=== PATIENT | male | born 1990 | race Caucasian/White ===

== ENCOUNTER 2023-07-22 19:05 | Emergency (ER) | payer SELFPAY ==
[2023-07-22 19:30] LABS: BASOPHILS ABSOLUTE AUTO 0.11 K/uL (0.00-0.20); EOSINOPHILS PERCENT AUTO 1.8 % (0.0-6.0); HEMATOCRIT 41.2 % (42.0-52.0); HEMOGLOBIN 14.5 g/dL (14.0-18.0); IMMATURE GRAN ABSOLUTE AUTO 0.04 K/uL (0.00-0.05); IMMATURE GRAN PERCENT AUTO 0.4 % (0.0-0.4); MEAN CORPUSCULAR HEMOGLOBIN 30.7 pg (28.0-32.0); MEAN CORPUSCULAR HGB CONC 35.2 g/dL (32.0-36.0); MEAN CORPUSCULAR VOLUME 87.1 fL (83.0-99.0); MEAN PLATELET VOLUME 10.5 fL (9.4-12.4); MONOCYTES ABSOLUTE AUTO 0.66 K/uL (0.00-0.80); NEUTROPHILS ABSOLUTE AUTO 7.93 K/uL (1.80-7.70); NEUTROPHILS PERCENT AUTO 71.8 % (41.0-71.0); PLATELET COUNT,PLT 248 K/uL (150-400); RED BLOOD CELL COUNT 4.73 M/uL (4.52-5.90); WHITE BLOOD CELL COUNT,WBC 11.04 K/uL (3.9-11.3)
[2023-07-22] MEDS: Sodium Chloride 0.9% 1,000 ML IV STA (19:35)
[2023-07-22] MEDS: Tamsulosin 0.4 MG Cap.ER PO ONE (19:35)
[2023-07-22] MEDS: Ketorolac 30 MG/ML SDV IVPUSH ONE (19:37)
[2023-07-22] MEDS: Sodium Chloride 0.9% 10 ML Syringe FLUSH PRN (19:39)
[2023-07-22] MEDS: Sodium Chloride 0.9% 2.5 ML Syringe FLUSH PRN (19:39)
[2023-07-22 19:57] LABS: A/G RATIO 0.9 (0.9-1.6); ALBUMIN 3.6 g/dL (3.4-5.0); BILIRUBIN TOTAL 0.3 mg/dL (0.2-1.0); CALCIUM 8.9 mg/dL (8.5-10.1); CARBON DIOXIDE,CO2 24.7 mmol/L (21.0-32.0); CREATININE 1.2 mg/dL (0.8-1.3); EST CRCL DRUG DOSING (CG) 91.56 mL/min; POTASSIUM,K 3.8 mmol/L (3.5-5.1); PROTEIN TOTAL,TP 7.6 g/dL (6.4-8.2)
[2023-07-22 20:05] LABS: LACTIC ACID 0.7 mmol/L (0.4-2.0)
[2023-07-22] MEDS: Iopamidol 755 MG/ML 500 ML Multipack Bottle IVPUSH ONE (20:30)
[2023-07-22 20:31] LABS: BILIRUBIN,URINE NEGATIVE (NEGATIVE); COLOR,URINE YELLOW; GLUCOSE,URINE NEGATIVE (NEGATIVE); KETONES,URINE NEGATIVE (NEGATIVE); LEUKOCYTE ESTERASE,URINE NEGATIVE (NEGATIVE); NITRITE,URINE NEGATIVE (NEGATIVE); OCCULT BLOOD,URINE SMALL (NEGATIVE); PH,URINE 6.5 (5.0-8.0); PROTEIN,URINE TRACE mg/dL (NEGATIVE); UROBILINOGEN,URINE 0.2 EU/dL (<2.0)
[2023-07-22 20:46] LABS: APPEARANCE,URINE HAZY
[2023-07-22 20:47] LABS: BACTERIA,URINE 1+ (NEGATIVE); EPITHELIAL CELLS,URINE RARE (NONE-FEW); RBC,URINE 20-30 (0-2/HPF)
== END 2023-07-22 21:34 | disposition home or self-care (01) ==
LOC: MW.ED 19:05
DX: R10.9 Unspecified abdominal pain (principal); Z79.899 Other long term (current) drug therapy; Z88.0 Allergy status to penicillin
CPT/HCPCS: 36415; 74177; 80053; 81001; 83605; 83690; 85025; 96374; 99284; A9270; J1885; J3490; J7030; Q9967

== ENCOUNTER 2023-08-25 19:20 | Emergency (ER) | payer MEDICAID ==
[2023-08-25] MEDS: Sodium Chloride 0.9% 2.5 ML Syringe FLUSH PRN (19:30)
[2023-08-25] MEDS: Sodium Chloride 0.9% 10 ML Syringe FLUSH PRN (19:30)
[2023-08-25] MEDS: Sodium Chloride 0.9% 1,000 ML IV ONE ×2 (19:30→20:45)
[2023-08-25 19:53] LABS: BASOPHILS PERCENT AUTO 0.9 % (0.0-1.0); EOSINOPHILS ABSOLUTE AUTO 0.07 K/uL (0.00-0.45); EOSINOPHILS PERCENT AUTO 0.6 % (0.0-6.0); HEMATOCRIT 41.4 % (42.0-52.0); HEMOGLOBIN 14.8 g/dL (14.0-18.0); IMMATURE GRAN ABSOLUTE AUTO 0.04 K/uL (0.00-0.05); IMMATURE GRAN PERCENT AUTO 0.4 % (0.0-0.4); LYMPHOCYTES ABSOLUTE AUTO 1.76 K/uL (1.00-4.80); LYMPHOCYTES PERCENT AUTO 16.1 % (24.0-44.0); MEAN CORPUSCULAR HEMOGLOBIN 30.6 pg (28.0-32.0); MEAN CORPUSCULAR HGB CONC 35.7 g/dL (32.0-36.0); MEAN CORPUSCULAR VOLUME 85.7 fL (83.0-99.0); MEAN PLATELET VOLUME 10.5 fL (9.4-12.4); MONOCYTES ABSOLUTE AUTO 0.75 K/uL (0.00-0.80); MONOCYTES PERCENT AUTO 6.8 % (0.0-8.0); NEUTROPHILS ABSOLUTE AUTO 8.23 K/uL (1.80-7.70); NEUTROPHILS PERCENT AUTO 75.2 % (41.0-71.0); PLATELET COUNT,PLT 253 K/uL (150-400); RED BLOOD CELL COUNT 4.83 M/uL (4.52-5.90); WHITE BLOOD CELL COUNT,WBC 10.95 K/uL (3.9-11.3)
[2023-08-25 20:18] LABS: LACTIC ACID 1.5 mmol/L (0.4-2.0)
[2023-08-25 20:20] LABS: A/G RATIO 0.9 (0.9-1.6); ALANINE AMINOTRANSFERASE,ALT 20 IU/L (14-63); ALBUMIN 3.4 g/dL (3.4-5.0); ALKALINE PHOSPHATASE 91 U/L (46-116); ASPARTATE AMNIOTRANSFERASE,AST 22 IU/L (15-37); BILIRUBIN TOTAL 0.6 mg/dL (0.2-1.0); BLOOD UREA NITROGEN,BUN 15 mg/dL (7.0-18.0); CALCIUM 9.5 mg/dL (8.5-10.1); CARBON DIOXIDE,CO2 26.5 mmol/L (21.0-32.0); CHLORIDE,CL 102 mmol/L (98-107); CREATININE 1.3 mg/dL (0.8-1.3); GLUCOSE RANDOM 96 mg/dL (74-106); LIPASE 25 U/L (16-77); POTASSIUM,K 3.7 mmol/L (3.5-5.1); PROTEIN TOTAL,TP 7.4 g/dL (6.4-8.2); SODIUM,NA 140 mmol/L (136-148)
[2023-08-25 20:21] LABS: ESTIMATED GFR 75 mL/min (>60)
[2023-08-25] MEDS: Iopamidol 755 MG/ML 500 ML Multipack Bottle IVPUSH ONE (21:03)
[2023-08-25] MEDS: Ketorolac 30 MG/ML SDV IVPUSH ONE (21:24)
[2023-08-25 22:03] LABS: APPEARANCE,URINE CLEAR; BILIRUBIN,URINE NEGATIVE (NEGATIVE); COLOR,URINE YELLOW; GLUCOSE,URINE NEGATIVE (NEGATIVE); KETONES,URINE NEGATIVE (NEGATIVE); LEUKOCYTE ESTERASE,URINE NEGATIVE (NEGATIVE); NITRITE,URINE NEGATIVE (NEGATIVE); OCCULT BLOOD,URINE MODERATE (NEGATIVE); PROTEIN,URINE NEGATIVE (NEGATIVE); UROBILINOGEN,URINE 0.2 EU/dL (<2.0)
[2023-08-25 22:14] LABS: BACTERIA,URINE RARE (NEGATIVE); EPITHELIAL CELLS,URINE RARE (NONE-FEW)
[2023-08-25] MEDS: cefTRIAXone 1 GM in Sodium Chloride 0.9% 50 ML IV ONE (23:00)
== END 2023-08-25 23:29 ==
LOC: MW.ED 19:20
DX: N45.1 Epididymitis (principal); Z88.0 Allergy status to penicillin; Z79.899 Other long term (current) drug therapy; Z75.8 Other problems related to medical facilities and other health care
CPT/HCPCS: 36415; 74177; 76870; 80053; 81001; 83605; 83690; 84484; 85025; 87040; 93005; 93976; 96361; 96365; 96375; 99285; J0696; J1885; J3490; J7030; Q9967; 93010; 99284

== ENCOUNTER 2023-08-26 10:01 | Emergency (ER) | payer MEDICAID ==
[2023-08-26] MEDS: Acetaminophen 500 MG Tab PO ONE (10:16)
[2023-08-26] MEDS: Doxycycline 100 MG Cap PO ONE (10:17)
[2023-08-26] MEDS: Ketorolac 30 MG/ML SDV IM STA (10:18)
== END 2023-08-26 11:04 | disposition left against medical advice (07) ==
LOC: MW.ED 10:01
DX: N45.1 Epididymitis (principal); Z88.0 Allergy status to penicillin; Z75.8 Other problems related to medical facilities and other health care
CPT/HCPCS: 96372; 99284; A9270; J1885; 99283

== ENCOUNTER 2023-08-28 23:32 | Emergency (ER) | payer MEDICAID ==
[2023-08-28 23:45] LABS: BASOPHILS ABSOLUTE AUTO 0.08 K/uL (0.00-0.20); BASOPHILS PERCENT AUTO 0.8 % (0.0-1.0); EOSINOPHILS ABSOLUTE AUTO 0.07 K/uL (0.00-0.45); EOSINOPHILS PERCENT AUTO 0.7 % (0.0-6.0); HEMATOCRIT 42.8 % (42.0-52.0); HEMOGLOBIN 15.1 g/dL (14.0-18.0); IMMATURE GRAN ABSOLUTE AUTO 0.04 K/uL (0.00-0.05); IMMATURE GRAN PERCENT AUTO 0.4 % (0.0-0.4); LYMPHOCYTES ABSOLUTE AUTO 1.62 K/uL (1.00-4.80); LYMPHOCYTES PERCENT AUTO 15.7 % (24.0-44.0); MEAN CORPUSCULAR HEMOGLOBIN 31.1 pg (28.0-32.0); MEAN CORPUSCULAR HGB CONC 35.3 g/dL (32.0-36.0); MEAN CORPUSCULAR VOLUME 88.1 fL (83.0-99.0); MEAN PLATELET VOLUME 10.7 fL (9.4-12.4); MONOCYTES ABSOLUTE AUTO 0.81 K/uL (0.00-0.80); MONOCYTES PERCENT AUTO 7.8 % (0.0-8.0); NEUTROPHILS ABSOLUTE AUTO 7.72 K/uL (1.80-7.70); NEUTROPHILS PERCENT AUTO 74.6 % (41.0-71.0); PLATELET COUNT,PLT 220 K/uL (150-400); RED BLOOD CELL COUNT 4.86 M/uL (4.52-5.90); WHITE BLOOD CELL COUNT,WBC 10.34 K/uL (3.9-11.3)
[2023-08-28] MEDS: Ondansetron 4 MG/2 ML SDV IVPUSH ONE (23:48)
[2023-08-28] MEDS: Sodium Chloride 0.9% 1,000 ML IV ONE (23:48)
[2023-08-28] MEDS: Ketorolac 30 MG/ML SDV IVPUSH ONE (23:48)
[2023-08-28] MEDS: Morphine 4 MG/ML Syringe IVPUSH ONE (23:48)
[2023-08-28] MEDS: Levofloxacin/Dextrose 5%-Water 750 MG in Premix Bag 1 BAG IV ONE (23:55)
[2023-08-29 00:44] LABS: A/G RATIO 0.8 (0.9-1.6); ALBUMIN 3.1 g/dL (3.4-5.0); BILIRUBIN TOTAL 0.5 mg/dL (0.2-1.0); CALCIUM 8.6 mg/dL (8.5-10.1); CARBON DIOXIDE,CO2 24.2 mmol/L (21.0-32.0); CREATININE 1.1 mg/dL (0.8-1.3); EST CRCL DRUG DOSING (CG) 96.76 mL/min; POTASSIUM,K 3.5 mmol/L (3.5-5.1); PROTEIN TOTAL,TP 7.1 g/dL (6.4-8.2)
== END 2023-08-29 04:52 | disposition home or self-care (01) ==
LOC: MW.ED 23:32
DX: N45.1 Epididymitis (principal); Z88.1 Allergy status to other antibiotic agents; Z88.0 Allergy status to penicillin; Z79.899 Other long term (current) drug therapy; Z75.8 Other problems related to medical facilities and other health care
CPT/HCPCS: 36415; 76870; 80053; 85025; 93976; 96365; 96375; 99285; J1885; J1956; J2270; J2405; J7030; 99284

== ENCOUNTER 2023-08-31 20:51 | Emergency (ER) | payer MEDICAID ==
[2023-08-31 21:45] LABS: BASOPHILS ABSOLUTE AUTO 0.09 K/uL (0.00-0.20); EOSINOPHILS PERCENT AUTO 1.1 % (0.0-6.0); HEMATOCRIT 40.5 % (42.0-52.0); HEMOGLOBIN 14.7 g/dL (14.0-18.0); IMMATURE GRAN ABSOLUTE AUTO 0.02 K/uL (0.00-0.05); IMMATURE GRAN PERCENT AUTO 0.2 % (0.0-0.4); LYMPHOCYTES ABSOLUTE AUTO 1.71 K/uL (1.00-4.80); LYMPHOCYTES PERCENT AUTO 18.7 % (24.0-44.0); MEAN CORPUSCULAR HEMOGLOBIN 30.9 pg (28.0-32.0); MEAN CORPUSCULAR HGB CONC 36.3 g/dL (32.0-36.0); MEAN CORPUSCULAR VOLUME 85.3 fL (83.0-99.0); MEAN PLATELET VOLUME 10.1 fL (9.4-12.4); MONOCYTES ABSOLUTE AUTO 0.69 K/uL (0.00-0.80); MONOCYTES PERCENT AUTO 7.5 % (0.0-8.0); NEUTROPHILS ABSOLUTE AUTO 6.55 K/uL (1.80-7.70); NEUTROPHILS PERCENT AUTO 71.5 % (41.0-71.0); PLATELET COUNT,PLT 252 K/uL (150-400); RED BLOOD CELL COUNT 4.75 M/uL (4.52-5.90); WHITE BLOOD CELL COUNT,WBC 9.16 K/uL (3.9-11.3)
[2023-08-31 22:23] LABS: A/G RATIO 0.8 (0.9-1.6); ALANINE AMINOTRANSFERASE,ALT 20 IU/L (14-63); ALBUMIN 3.4 g/dL (3.4-5.0); ALKALINE PHOSPHATASE 88 U/L (46-116); ASPARTATE AMNIOTRANSFERASE,AST 19 IU/L (15-37); BILIRUBIN TOTAL 0.4 mg/dL (0.2-1.0); BLOOD UREA NITROGEN,BUN 17 mg/dL (7.0-18.0); CALCIUM 8.4 mg/dL (8.5-10.1); CARBON DIOXIDE,CO2 24.7 mmol/L (21.0-32.0); CHLORIDE,CL 104 mmol/L (98-107); GLUCOSE RANDOM 136 mg/dL (74-106); POTASSIUM,K 3.5 mmol/L (3.5-5.1); PROTEIN TOTAL,TP 7.5 g/dL (6.4-8.2); SODIUM,NA 139 mmol/L (136-148)
[2023-08-31 22:28] LABS: ESTIMATED GFR 103 mL/min (>60)
[2023-09-01] MEDS: Ibuprofen 600 MG Tab PO ONE (01:57)
[2023-09-01] MEDS: Acetaminophen 325 MG Tab PO ONE (01:58)
== END 2023-09-01 02:10 ==
LOC: MW.ED 20:51
DX: N45.1 Epididymitis (principal); Z88.0 Allergy status to penicillin; Z79.899 Other long term (current) drug therapy; Z75.8 Other problems related to medical facilities and other health care
CPT/HCPCS: 36415; 76870; 80053; 83605; 85025; 93976; 99284; A9270; 99283

== ENCOUNTER 2023-09-01 02:57 | Emergency (ER) | payer MEDICAID | END 2023-09-01 03:30 | LOC: MW.ED 02:57 | DX: J44.9 Chronic obstructive pulmonary disease, unspecified; Z79.899 Other long term (current) drug therapy; Z75.8 Other problems related to medical facilities and other health care; Z88.0 Allergy status to penicillin | CPT/HCPCS: 99282; 99283 ==

== ENCOUNTER 2023-09-16 10:28 | Emergency (ER) | payer MEDICAID ==
[2023-09-16 12:25] LABS: APPEARANCE,URINE CLEAR; BILIRUBIN,URINE NEGATIVE (NEGATIVE); COLOR,URINE YELLOW; GLUCOSE,URINE NEGATIVE (NEGATIVE); KETONES,URINE NEGATIVE (NEGATIVE); LEUKOCYTE ESTERASE,URINE NEGATIVE (NEGATIVE); NITRITE,URINE NEGATIVE (NEGATIVE); OCCULT BLOOD,URINE SMALL (NEGATIVE); PROTEIN,URINE NEGATIVE (NEGATIVE); UROBILINOGEN,URINE 0.2 EU/dL (<2.0)
[2023-09-16 12:34] LABS: BACTERIA,URINE 2+ (NEGATIVE); EPITHELIAL CELLS,URINE RARE (NONE-FEW); MUCUS,URINE LIGHT (NONE-MOD)
[2023-09-16] MEDS: Sodium Chloride 0.9% 1,000 ML IV STA (13:24)
[2023-09-16] MEDS: Ondansetron 4 MG/2 ML SDV IVPUSH STA (13:24)
[2023-09-16] MEDS: Ketorolac 30 MG/ML SDV IVPUSH STA (13:24)
[2023-09-16 13:36] LABS: BASOPHILS PERCENT AUTO 0.8 % (0.0-1.0); EOSINOPHILS ABSOLUTE AUTO 0.14 K/uL (0.00-0.45); EOSINOPHILS PERCENT AUTO 1.1 % (0.0-6.0); HEMATOCRIT 39.8 % (42.0-52.0); HEMOGLOBIN 14.1 g/dL (14.0-18.0); IMMATURE GRAN ABSOLUTE AUTO 0.03 K/uL (0.00-0.05); IMMATURE GRAN PERCENT AUTO 0.2 % (0.0-0.4); LYMPHOCYTES PERCENT AUTO 14.7 % (24.0-44.0); MEAN CORPUSCULAR HEMOGLOBIN 30.3 pg (28.0-32.0); MEAN CORPUSCULAR HGB CONC 35.4 g/dL (32.0-36.0); MEAN CORPUSCULAR VOLUME 85.4 fL (83.0-99.0); MEAN PLATELET VOLUME 10.5 fL (9.4-12.4); NEUTROPHILS ABSOLUTE AUTO 9.86 K/uL (1.80-7.70); NEUTROPHILS PERCENT AUTO 76.2 % (41.0-71.0); PLATELET COUNT,PLT 264 K/uL (150-400); RED BLOOD CELL COUNT 4.66 M/uL (4.52-5.90); WHITE BLOOD CELL COUNT,WBC 12.93 K/uL (3.9-11.3)
[2023-09-16 13:51] LABS: C. TRACHOMATIS BY PCR NOT DETECTED; N. GONORRHOEAE BY PCR NOT DETECTED
[2023-09-16 13:58] LABS: A/G RATIO 0.9 (0.9-1.6); ALBUMIN 3.2 g/dL (3.4-5.0); BILIRUBIN TOTAL 0.3 mg/dL (0.2-1.0); CALCIUM 8.9 mg/dL (8.5-10.1); CARBON DIOXIDE,CO2 26.8 mmol/L (21.0-32.0); EST CRCL DRUG DOSING (CG) 106.44 mL/min; POTASSIUM,K 3.7 mmol/L (3.5-5.1); PROTEIN TOTAL,TP 6.9 g/dL (6.4-8.2)
[2023-09-16] MEDS: cefTRIAXone 1 GM in Sodium Chloride 0.9% 50 ML IV STA (14:15)
[2023-09-16] MEDS: Tamsulosin 0.4 MG Cap.ER PO STA (14:15)
[2023-09-16 14:22] LABS: AMPHETAMINES SCREEN, URINE PRESUMPTIVE POSITIVE (CUTOFF=500); BARBITURATE SCREEN,URINE NEGATIVE (CUTOFF=200); BENZODIAZEPINES SCREEN,URINE NEGATIVE (CUTOFF=150); BUPRENORPHINE SCREEN,URINE NEGATIVE (CUTOFF=10); METHADONE SCREEN, URINE NEGATIVE (CUTOFF=200); METHAMPHETAMINES SCREEN, URINE PRESUMPTIVE POSITIVE (CUTOFF=500); OXYCODONE SCREEN,URINE NEGATIVE (CUT0FF=100); PCP SCREEN,URINE NEGATIVE (CUTOFF=25); THC SCREEN,URINE 20 NG/ML NEGATIVE (CUTOFF=50)
[2023-09-16] MEDS: Iopamidol 755 MG/ML 500 ML Multipack Bottle IVPUSH STA (15:33)
== END 2023-09-16 16:57 | disposition home or self-care (01) ==
LOC: MW.ED 10:28
DX: N30.00 Acute cystitis without hematuria (principal); N50.811 Right testicular pain; Z75.8 Other problems related to medical facilities and other health care; Z88.1 Allergy status to other antibiotic agents; Z88.0 Allergy status to penicillin; Z79.899 Other long term (current) drug therapy
CPT/HCPCS: 36415; 74177; 80053; 80305; 81001; 83690; 85025; 87086; 87491; 87591; 96361; 96374; 96375; 99284; A9270; J0696; J1885; J2405; J3490; J7030; Q9967

== ENCOUNTER 2023-09-19 00:15 | Emergency (ER) | payer MEDICAID ==
[2023-09-19] MEDS: Ibuprofen 600 MG Tab PO ONE (00:40)
[2023-09-19] MEDS: Acetaminophen 325 MG Tab PO ONE (00:40)
== END 2023-09-19 00:52 ==
LOC: MW.ED 00:15
DX: N50.811 Right testicular pain (principal); N50.812 Left testicular pain; R10.9 Unspecified abdominal pain; G89.29 Other chronic pain; J44.9 Chronic obstructive pulmonary disease, unspecified; Z79.899 Other long term (current) drug therapy; Z88.0 Allergy status to penicillin; Z75.8 Other problems related to medical facilities and other health care
CPT/HCPCS: 99284; A9270; 99283

== ENCOUNTER 2023-09-19 15:29 | Emergency (ER) | payer MEDICAID ==
[2023-09-19] MEDS: Sodium Chloride 0.9% 1,000 ML IV ONE (15:42)
[2023-09-19 15:50] LABS: BASOPHILS PERCENT AUTO 1.5 % (0.0-1.0); EOSINOPHILS ABSOLUTE AUTO 0.08 K/uL (0.00-0.45); EOSINOPHILS PERCENT AUTO 1.2 % (0.0-6.0); HEMOGLOBIN 14.3 g/dL (14.0-18.0); IMMATURE GRAN ABSOLUTE AUTO 0.03 K/uL (0.00-0.05); IMMATURE GRAN PERCENT AUTO 0.4 % (0.0-0.4); LYMPHOCYTES ABSOLUTE AUTO 1.54 K/uL (1.00-4.80); LYMPHOCYTES PERCENT AUTO 22.5 % (24.0-44.0); MEAN CORPUSCULAR HGB CONC 34.9 g/dL (32.0-36.0); MEAN CORPUSCULAR VOLUME 88.7 fL (83.0-99.0); MEAN PLATELET VOLUME 10.3 fL (9.4-12.4); MONOCYTES ABSOLUTE AUTO 0.44 K/uL (0.00-0.80); MONOCYTES PERCENT AUTO 6.4 % (0.0-8.0); NEUTROPHILS ABSOLUTE AUTO 4.65 K/uL (1.80-7.70); PLATELET COUNT,PLT 231 K/uL (150-400); RED BLOOD CELL COUNT 4.62 M/uL (4.52-5.90); WHITE BLOOD CELL COUNT,WBC 6.84 K/uL (3.9-11.3)
[2023-09-19 16:17] LABS: LACTIC ACID 0.8 mmol/L (0.4-2.0)
[2023-09-19 16:25] LABS: ACETAMINOPHEN <2.0 ug/mL; ALANINE AMINOTRANSFERASE,ALT 25 IU/L (14-63); ALBUMIN 3.4 g/dL (3.4-5.0); ALKALINE PHOSPHATASE 90 U/L (46-116); ASPARTATE AMNIOTRANSFERASE,AST 22 IU/L (15-37); BILIRUBIN TOTAL 0.6 mg/dL (0.2-1.0); BLOOD UREA NITROGEN,BUN 20 mg/dL (7.0-18.0); CARBON DIOXIDE,CO2 27.2 mmol/L (21.0-32.0); CHLORIDE,CL 103 mmol/L (98-107); CREATININE 0.9 mg/dL (0.8-1.3); GLUCOSE RANDOM 89 mg/dL (74-106); PROTEIN TOTAL,TP 6.9 g/dL (6.4-8.2); SALICYLATE 0.5 mg/dL (0.0-20.0); SODIUM,NA 139 mmol/L (136-148)
[2023-09-19 16:26] LABS: AMPHETAMINES SCREEN, URINE PRESUMPTIVE POSITIVE (CUTOFF=500); BARBITURATE SCREEN,URINE NEGATIVE (CUTOFF=200); BENZODIAZEPINES SCREEN,URINE NEGATIVE (CUTOFF=150); BUPRENORPHINE SCREEN,URINE NEGATIVE (CUTOFF=10); METHADONE SCREEN, URINE NEGATIVE (CUTOFF=200); METHAMPHETAMINES SCREEN, URINE PRESUMPTIVE POSITIVE (CUTOFF=500); OXYCODONE SCREEN,URINE NEGATIVE (CUT0FF=100); PCP SCREEN,URINE NEGATIVE (CUTOFF=25); THC SCREEN,URINE 20 NG/ML NEGATIVE (CUTOFF=50)
[2023-09-19 16:36] LABS: ESTIMATED GFR 117 mL/min (>60); ETHANOL BLOOD MEDICAL < 3.0 mg/dL
== END 2023-09-19 17:07 | disposition home or self-care (01) ==
LOC: MW.ED 15:29
DX: F19.10 Other psychoactive substance abuse, uncomplicated (principal); J44.89 Other specified chronic obstructive pulmonary disease; I10 Essential (primary) hypertension; Z88.1 Allergy status to other antibiotic agents; Z88.0 Allergy status to penicillin; Z79.899 Other long term (current) drug therapy
CPT/HCPCS: 36415; 70450; 71045; 80053; 80143; 80179; 80305; 80307; 83605; 84443; 84484; 85025; 93005; 96360; 99285; J7030; 93010; 99283

== ENCOUNTER 2023-09-21 21:38 | Emergency (ER) | payer MEDICAID ==
[2023-09-21 21:47] LABS: BASE EXCESS VENOUS 3.9 (-2.0-3.0); PH,VENOUS 7.45 (7.31-7.41)
[2023-09-21 21:49] LABS: BASOPHILS ABSOLUTE AUTO 0.09 K/uL (0.00-0.20); EOSINOPHILS ABSOLUTE AUTO 0.17 K/uL (0.00-0.45); EOSINOPHILS PERCENT AUTO 1.9 % (0.0-6.0); HEMATOCRIT 41.2 % (42.0-52.0); IMMATURE GRAN ABSOLUTE AUTO 0.01 K/uL (0.00-0.05); IMMATURE GRAN PERCENT AUTO 0.1 % (0.0-0.4); LYMPHOCYTES ABSOLUTE AUTO 2.23 K/uL (1.00-4.80); LYMPHOCYTES PERCENT AUTO 25.1 % (24.0-44.0); MEAN CORPUSCULAR HEMOGLOBIN 31.1 pg (28.0-32.0); MEAN CORPUSCULAR HGB CONC 36.4 g/dL (32.0-36.0); MEAN CORPUSCULAR VOLUME 85.5 fL (83.0-99.0); MEAN PLATELET VOLUME 10.2 fL (9.4-12.4); MONOCYTES ABSOLUTE AUTO 0.66 K/uL (0.00-0.80); MONOCYTES PERCENT AUTO 7.4 % (0.0-8.0); NEUTROPHILS ABSOLUTE AUTO 5.71 K/uL (1.80-7.70); NEUTROPHILS PERCENT AUTO 64.5 % (41.0-71.0); PLATELET COUNT,PLT 260 K/uL (150-400); RED BLOOD CELL COUNT 4.82 M/uL (4.52-5.90); WHITE BLOOD CELL COUNT,WBC 8.87 K/uL (3.9-11.3)
[2023-09-21 22:28] LABS: LACTIC ACID 0.6 mmol/L (0.4-2.0)
[2023-09-21] MEDS: Iopamidol 755 MG/ML 500 ML Multipack Bottle IVPUSH ONE (22:29)
[2023-09-21 22:33] LABS: A/G RATIO 0.8 (0.9-1.6); ALANINE AMINOTRANSFERASE,ALT 23 IU/L (14-63); ALBUMIN 3.2 g/dL (3.4-5.0); ALKALINE PHOSPHATASE 97 U/L (46-116); ASPARTATE AMNIOTRANSFERASE,AST 22 IU/L (15-37); BILIRUBIN TOTAL 0.2 mg/dL (0.2-1.0); BLOOD UREA NITROGEN,BUN 22 mg/dL (7.0-18.0); CALCIUM 8.7 mg/dL (8.5-10.1); CARBON DIOXIDE,CO2 27.4 mmol/L (21.0-32.0); CHLORIDE,CL 99 mmol/L (98-107); EST CRCL DRUG DOSING (CG) 106.44 mL/min; ETHANOL BLOOD MEDICAL <3 mg/dL; GLUCOSE RANDOM 93 mg/dL (74-106); MAGNESIUM 1.7 mg/dL (1.8-2.4); POTASSIUM,K 4.2 mmol/L (3.5-5.1); PROTEIN TOTAL,TP 7.1 g/dL (6.4-8.2); SODIUM,NA 136 mmol/L (136-148); TSH ULTRASENSITIVE 0.39 uIU/mL (0.36-3.74)
[2023-09-21 22:34] LABS: ESTIMATED GFR 103 mL/min (>60)
[2023-09-21 22:51] LABS: INR 1.09 (0.86-1.11); PTT,PARTIAL THROMBOPLSTIN TIME 27.5 SEC (23.9-30.7)
== END 2023-09-21 23:07 ==
LOC: MW.ED 21:38
DX: T14.91XA Suicide attempt, initial encounter (principal); I10 Essential (primary) hypertension; Z79.899 Other long term (current) drug therapy; Z88.0 Allergy status to penicillin; Z75.8 Other problems related to medical facilities and other health care; X83.8XXA Intentional self-harm by other specified means, initial encounter
CPT/HCPCS: 36415; 70450; 70498; 71045; 72125; 80053; 80307; 82803; 83605; 83735; 84443; 84484; 85025; 85610; 85730; 93005; 99285; Q9967; 93010

== ENCOUNTER 2024-06-11 18:02 | Emergency (ER) | payer SELFPAY ==
[2024-06-11 19:45] LABS: BASOPHILS ABSOLUTE AUTO 0.11 K/uL (0.00-0.20); BASOPHILS PERCENT AUTO 0.6 % (0.0-1.0); EOSINOPHILS ABSOLUTE AUTO 0.06 K/uL (0.00-0.45); EOSINOPHILS PERCENT AUTO 0.3 % (0.0-6.0); HEMOGLOBIN 15.9 g/dL (14.0-18.0); IMMATURE GRAN ABSOLUTE AUTO 0.08 K/uL (0.00-0.05); IMMATURE GRAN PERCENT AUTO 0.4 % (0.0-0.4); LYMPHOCYTES ABSOLUTE AUTO 1.68 K/uL (1.00-4.80); LYMPHOCYTES PERCENT AUTO 9.4 % (24.0-44.0); MEAN CORPUSCULAR HEMOGLOBIN 30.5 pg (28.0-32.0); MEAN CORPUSCULAR HGB CONC 36.1 g/dL (32.0-36.0); MEAN CORPUSCULAR VOLUME 84.3 fL (83.0-99.0); MEAN PLATELET VOLUME 10.4 fL (9.4-12.4); MONOCYTES ABSOLUTE AUTO 0.94 K/uL (0.00-0.80); MONOCYTES PERCENT AUTO 5.3 % (0.0-8.0); NEUTROPHILS ABSOLUTE AUTO 15.03 K/uL (1.80-7.70); PLATELET COUNT,PLT 279 K/uL (150-400); RED BLOOD CELL COUNT 5.22 M/uL (4.52-5.90)
[2024-06-11] MEDS: Sodium Chloride 0.9% 10 ML Syringe FLUSH PRN (19:52)
[2024-06-11] MEDS: Morphine 4 MG/ML Syringe IVPUSH STA (19:52)
[2024-06-11] MEDS: Sodium Chloride 0.9% 2.5 ML Syringe FLUSH PRN (19:52)
[2024-06-11] MEDS: Ondansetron 4 MG/2 ML SDV IVPUSH STA (19:52)
[2024-06-11 20:02] LABS: A/G RATIO 0.9 (0.9-1.6); ALBUMIN 3.9 g/dL (3.4-5.0); BILIRUBIN TOTAL 0.5 mg/dL (0.2-1.0); CALCIUM 9.2 mg/dL (8.5-10.1); CARBON DIOXIDE,CO2 25.2 mmol/L (21.0-32.0); CREATININE 1.1 mg/dL (0.8-1.3); EST CRCL DRUG DOSING (CG) 105.82 mL/min; POTASSIUM,K 3.5 mmol/L (3.5-5.1); PROTEIN TOTAL,TP 8.1 g/dL (6.4-8.2)
[2024-06-11] MEDS: cefTRIAXone 2 GM in Sodium Chloride 0.9% 50 ML IV ONE (20:20)
[2024-06-11] MEDS: Morphine 4 MG/ML Syringe IVPUSH ONE (20:20)
[2024-06-11] MEDS: Sodium Chloride 0.9% 1,000 ML IV ONE (20:21)
[2024-06-11] MEDS: Iopamidol 755 Mg/ML 100 ML Bottle IVPUSH ONE (20:42)
[2024-06-11 21:33] LABS: APPEARANCE,URINE CLEAR; BILIRUBIN,URINE NEGATIVE (NEGATIVE); COLOR,URINE YELLOW; GLUCOSE,URINE NEGATIVE (NEGATIVE); KETONES,URINE NEGATIVE (NEGATIVE); LEUKOCYTE ESTERASE,URINE NEGATIVE (NEGATIVE); NITRITE,URINE NEGATIVE (NEGATIVE); OCCULT BLOOD,URINE NEGATIVE (NEGATIVE); PROTEIN,URINE NEGATIVE (NEGATIVE); UROBILINOGEN,URINE 0.2 EU/dL (<2.0)
[2024-06-11] MEDS: Doxycycline 100 MG Cap PO ONE (21:43)
[2024-06-11 23:20] LABS: C. TRACHOMATIS BY PCR NOT DETECTED; N. GONORRHOEAE BY PCR NOT DETECTED
== END 2024-06-11 21:58 | disposition home or self-care (01) ==
LOC: MW.ED 18:02
DX: N45.1 Epididymitis (principal); I10 Essential (primary) hypertension; F17.210 Nicotine dependence, cigarettes, uncomplicated; Z88.0 Allergy status to penicillin
CPT/HCPCS: 36415; 74177; 76870; 80053; 81003; 83690; 85025; 87491; 87591; 93976; 96365; 96375; 99284; A9270; J0696; J2270; J2405; J3490; J7030; Q9967

== ENCOUNTER 2024-07-03 15:49 | Emergency (ER) | payer SELFPAY ==
[2024-07-03] MEDS: Ondansetron 4 MG/2 ML SDV IVPUSH ONE (18:08)
[2024-07-03] MEDS: Morphine 4 MG/ML Syringe IVPUSH ONE (18:08)
[2024-07-03] MEDS: Sodium Chloride 0.9% 1,000 ML IV SCH (18:08)
[2024-07-03 18:13] LABS: BASOPHILS ABSOLUTE AUTO 0.08 K/uL (0.00-0.20); BASOPHILS PERCENT AUTO 0.7 % (0.0-1.0); EOSINOPHILS ABSOLUTE AUTO 0.06 K/uL (0.00-0.45); EOSINOPHILS PERCENT AUTO 0.5 % (0.0-6.0); HEMATOCRIT 44.4 % (42.0-52.0); IMMATURE GRAN ABSOLUTE AUTO 0.04 K/uL (0.00-0.05); IMMATURE GRAN PERCENT AUTO 0.4 % (0.0-0.4); LYMPHOCYTES ABSOLUTE AUTO 1.76 K/uL (1.00-4.80); LYMPHOCYTES PERCENT AUTO 15.5 % (24.0-44.0); MEAN CORPUSCULAR HEMOGLOBIN 30.9 pg (28.0-32.0); MEAN CORPUSCULAR VOLUME 85.7 fL (83.0-99.0); MEAN PLATELET VOLUME 10.5 fL (9.4-12.4); MONOCYTES ABSOLUTE AUTO 0.68 K/uL (0.00-0.80); NEUTROPHILS ABSOLUTE AUTO 8.77 K/uL (1.80-7.70); NEUTROPHILS PERCENT AUTO 76.9 % (41.0-71.0); PLATELET COUNT,PLT 253 K/uL (150-400); RED BLOOD CELL COUNT 5.18 M/uL (4.52-5.90); WHITE BLOOD CELL COUNT,WBC 11.39 K/uL (3.9-11.3)
[2024-07-03] MEDS: Iopamidol 755 Mg/ML 100 ML Bottle IVPUSH STA (18:38)
[2024-07-03 18:48] LABS: A/G RATIO 0.9 (0.9-1.6); ALBUMIN 3.8 g/dL (3.4-5.0); BILIRUBIN TOTAL 0.8 mg/dL (0.2-1.0); CALCIUM 9.3 mg/dL (8.5-10.1); CREATININE 1.1 mg/dL (0.8-1.3); EST CRCL DRUG DOSING (CG) 105.82 mL/min; POTASSIUM,K 3.8 mmol/L (3.5-5.1); PROTEIN TOTAL,TP 7.9 g/dL (6.4-8.2)
[2024-07-03 19:23] LABS: APPEARANCE,URINE CLEAR; BILIRUBIN,URINE NEGATIVE (NEGATIVE); COLOR,URINE YELLOW; GLUCOSE,URINE NEGATIVE (NEGATIVE); KETONES,URINE >=80 mg/dL (NEGATIVE); LEUKOCYTE ESTERASE,URINE NEGATIVE (NEGATIVE); NITRITE,URINE NEGATIVE (NEGATIVE); OCCULT BLOOD,URINE TRACE-INTACT (NEGATIVE); PH,URINE 5.5 (5.0-8.0); PROTEIN,URINE NEGATIVE (NEGATIVE); UROBILINOGEN,URINE 0.2 EU/dL (<2.0)
[2024-07-03 19:30] LABS: BACTERIA,URINE RARE (NEGATIVE); EPITHELIAL CELLS,URINE RARE (NONE-FEW); RBC,URINE 0-2 (0-2/HPF); WBC,URINE NONE SEEN (0-5/HPF)
== END 2024-07-03 20:08 | disposition home or self-care (01) ==
LOC: MW.ED 15:49
DX: I86.1 Scrotal varices (principal); I10 Essential (primary) hypertension; J44.89 Other specified chronic obstructive pulmonary disease; Z90.49 Acquired absence of other specified parts of digestive tract; Z79.899 Other long term (current) drug therapy; Z87.891 Personal history of nicotine dependence
CPT/HCPCS: 36415; 74177; 80053; 81001; 83605; 83690; 85025; 96361; 96374; 96375; 99284; J2270; J2405; J7030; Q9967

== ENCOUNTER 2024-11-04 14:43 | Emergency (ER) | payer MEDICAID ==
[2024-11-04] MEDS ORDERED: Sodium Chloride 0.9% 10 ML Syringe FLUSH PRN (15:52)
[2024-11-04] MEDS ORDERED: Sodium Chloride 0.9% 2.5 ML Syringe FLUSH PRN (15:52)
[2024-11-04 16:15] LABS: APPEARANCE,URINE SLT CLOUDY; GLUCOSE,URINE NEGATIVE (NEGATIVE); OCCULT BLOOD,URINE SMALL (NEGATIVE)
[2024-11-04 16:24] LABS: EPITHELIAL CELLS,URINE FEW (NONE-FEW)
[2024-11-04 16:42] LABS: BASOPHILS ABSOLUTE AUTO 0.11 K/uL (0.00-0.20); BASOPHILS PERCENT AUTO 0.7 % (0.0-1.0); EOSINOPHILS ABSOLUTE AUTO 0.02 K/uL (0.00-0.45); EOSINOPHILS PERCENT AUTO 0.1 % (0.0-6.0); IMMATURE GRAN ABSOLUTE AUTO 0.04 K/uL (0.00-0.05); IMMATURE GRAN PERCENT AUTO 0.3 % (0.0-0.4); LYMPHOCYTES ABSOLUTE AUTO 1.72 K/uL (1.00-4.80); LYMPHOCYTES PERCENT AUTO 11.5 % (24.0-44.0); MEAN PLATELET VOLUME 10.7 fL (9.4-12.4); MONOCYTES ABSOLUTE AUTO 0.79 K/uL (0.00-0.80); MONOCYTES PERCENT AUTO 5.3 % (0.0-8.0); NEUTROPHILS ABSOLUTE AUTO 12.28 K/uL (1.80-7.70); NEUTROPHILS PERCENT AUTO 82.1 % (41.0-71.0); NRBC ABSOLUTE 0.00 K/uL (0.00-0.02); NRBC PERCENT 0.0 /100WBC (0.0-0.2); PLATELET COUNT,PLT 300 K/uL (150-400); RED BLOOD CELL COUNT 5.30 M/uL (4.52-5.90); WHITE BLOOD CELL COUNT,WBC 14.96 K/uL (3.9-11.3)
[2024-11-04 17:10] LABS: LACTIC ACID 1.1 mmol/L (0.4-2.0)
[2024-11-04 17:17] LABS: A/G RATIO 1.1 (0.9-1.6); ALANINE AMINOTRANSFERASE,ALT 20.0 IU/L (14-63); ASPARTATE AMNIOTRANSFERASE,AST 23.0 IU/L (15-37); BILIRUBIN TOTAL 0.4 mg/dL (0.2-1.0); BLOOD UREA NITROGEN,BUN 24.0 mg/dL (7.0-18.0); CARBON DIOXIDE,CO2 24.8 mmol/L (21.0-32.0); CHLORIDE,CL 103.0 mmol/L (98-107); CREATININE 1.3 mg/dL (0.8-1.3); EST CRCL DRUG DOSING (CG) 88.97 mL/min; ESTIMATED GFR 75.0 mL/min (>60); GLUCOSE RANDOM 104.0 mg/dL (74-106); POTASSIUM,K 3.5 mmol/L (3.5-5.1); PROTEIN TOTAL,TP 8.0 g/dL (6.4-8.2); SODIUM,NA 140.0 mmol/L (136-148)
[2024-11-04] MEDS: Ketorolac 30 MG/ML SDV IVPUSH ONE (17:38)
[2024-11-04 19:14] LABS: C. TRACHOMATIS BY PCR NOT DETECTED; N. GONORRHOEAE BY PCR NOT DETECTED
== END 2024-11-04 18:17 | disposition other institution (70) ==
LOC: MW.ED 14:43
DX: N45.1 Epididymitis (principal); N39.0 Urinary tract infection, site not specified; I10 Essential (primary) hypertension; J44.89 Other specified chronic obstructive pulmonary disease; Z88.0 Allergy status to penicillin; Z79.899 Other long term (current) drug therapy; Z90.49 Acquired absence of other specified parts of digestive tract
CPT/HCPCS: 36415; 71045; 76870; 80053; 81001; 83605; 85025; 87040; 87491; 87591; 93976; 96365; 96375; 99285; J0696; J1885; 99284